=== PATIENT | male | born 1965 | race Two or more races ===

== ENCOUNTER 2025-05-29 18:01 | Emergency (ER) | payer MEDICAID, OTHER ==
[~2025-05-29] VITALS: Ht 175.3 cm; Wt 113.6 kg
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
--- NOTE | 2025-05-29 19:37 | DVH ---
EXAM: XY CHEST XRAY 1 VIEW HISTORY: cp TECHNIQUE: 1 view of the chest COMPARISON: None FINDINGS/IMPRESSION: LUNGS: No pleural effusion, consolidation, or pneumothorax. MEDIASTINUM: Unremarkable. BONES: No acute osseous abnormality. OTHER: Right ventricular peritoneal shunt catheter
[2025-05-29 19:39] LABS: Hematocrit 47.9 % (41.0-53.0); Hemoglobin 16.8 g/dL (13.5-17.5); Mean Corpuscular Hemoglobin 31.7 pg (28.0-32.0); Mean Corpuscular Volume 90.4 fL (80.0-100.0); Nucleated Red Blood Cells % 0.3 %
[2025-05-29 19:49] LABS: Chloride 105 mmol/L (98-107); Potassium 4.3 mmol/L (3.5-5.1); Sodium 144 mmol/L (136-145)
[2025-05-29 19:50] LABS: Anion Gap 14 (5-15); Calcium 10.0 mg/dL (8.7-10.4); Carbon Dioxide 25 mmol/L (20-31)
[2025-05-29 19:55] LABS: BUN/Creatinine Ratio 11.0 (10.0-20.0); Blood Urea Nitrogen 15 mg/dL (9-23)
[2025-05-29 19:57] LABS: Glucose 116 mg/dL (74-106)
[2025-05-29 22:27] VITALS: TEMP 97.9
[2025-05-29 22:35] VITALS: PULSE 72; RESP 18; O2SAT 100
[2025-05-29] MEDS: levETIRAcetam 1000 mg/100ml 100 ML IV ONE (22:39)
[2025-05-29] MEDS: SODIUM CHLORIDE 0.9% 1,000 ML IV ONE (22:39)
[2025-05-30 02:14] VITALS: BP 170/117; PULSE 71; RESP 12; O2SAT 96
== END 2025-05-30 02:15 | disposition home or self-care (01) ==
LOC: ER 18:01 → EDBD 18:01 → ER 05-30 02:15
DX: R56.9 Unspecified convulsions (principal); I10 Essential (primary) hypertension; Z86.73 Personal history of transient ischemic attack (TIA), and cerebral infarction without residual deficits; Z79.899 Other long term (current) drug therapy
CPT/HCPCS: 36415; 71045; 80048; 82542; 83880; 84484; 85025; 96365; 99284; J1953